=== PATIENT | female | born 1940 | race Caucasian/White ===

== ENCOUNTER 2016-10-27 18:45 | Emergency (ER) | payer MEDICARE, MEDICAID ==
[~2016-10-27] VITALS: Ht 157.5 cm; Wt 113.0 kg
[~2016-10-27 18:45] MED LIST: ADVAI100I PO; ALBU0.086 INH; ALBU1AER INH; ALBU6.7H INH; ATOR40TA PO; CARV6.252 PO; DOXY100T PO; LEVO100T4 PO; LOSA25TA31 PO; MONT4CHW2 PO; PRED20 PO; XYZA5TAB2 PO
[2016-10-27 18:57] VITALS: BP 117/69; PULSE 69; RESP 18; TEMP 98.8; O2SAT 100
[2016-10-27] MEDS ORDERED: SODIUM CHLORIDE 0.9% FLUSH 5 ML FLUSH IVF PRN (19:15)
--- NOTE | 2016-10-27 19:25 | PD ---
HPI . Swelling and shortness of breath Chief Complaint: Edema Time Seen by Provider: 19:12 Travel History International Travel<30 days: No Contact w/Intl Traveler<30days: No Traveled to known affect area: No History of Present Illness HPI Patient presents with peripheral edema including her arms and shortness of breath which started 3-4 days ago. She states that she does have a cough and some mild chest discomfort. She also states that she has some back pain. PFSH Past Medical History Asthma: Yes Cardiovascular Problems: Yes (CHF) High Cholesterol: Yes Diverticulitis: Yes GERD: Yes Hiatal Hernia: Yes Hypertension: Yes Respiratory: Yes (PE) Thyroid Disease: Yes Past Surgical History Abdominal Surgery: Yes Neurologic Surgery: Yes (lumbar sx) Other Surgery: Yes (partial thyroidectomy) Social History Alcohol Use: No Tobacco Use: No Substance Use: No Allergies-Medications (Allergen,Severity, Reaction): Coded Allergies: Penicillin (Verified Allergy, Unknown, 10/27/16) Reported Meds & Prescriptions Reported Meds & Active Scripts Active Review of Systems Except as stated in HPI: all other systems reviewed are Neg General / Constitutional: No: Fever, Chills Cardiovascular: Positive: Chest Pain or Discomfort Respiratory: Positive: Shortness of Breath Gastrointestinal: No: Nausea, Vomiting, Diarrhea Genitourinary: No: Urgency, Frequency, Dysuria Musculoskeletal: Positive: Edema Physical Exam Narrative GENERAL: Patient does not appear to be in any acute distress. She is obese. SKIN: Warm and dry. HEAD: Atraumatic. Normocephalic. EYES: Pupils equal and round. ENT: No nasal bleeding or discharge. Mucous membranes pink and moist. NECK: Trachea midline. Neck is supple. CARDIOVASCULAR: Regular rate and rhythm. Heart sounds are distant probably due to the size of her breasts. RESPIRATORY: No accessory muscle use. Her lungs sound clear. Breath sounds are distant also probably due to her size. GASTROINTESTINAL: Abdomen soft. Tender over an old surgical scar. Nondistended. MUSCULOSKELETAL: No obvious deformities. Her extremities appear swollen but there is no pitting. NEUROLOGICAL: Awake and alert. No obvious cranial nerve deficits. Motor grossly within normal limits. Normal speech. PSYCHIATRIC: Appropriate mood and affect; insight and judgment normal. Data Data Last Documented VS Vital Signs Date Time Temp Pulse Resp B/P Pulse Ox O2 Delivery O2 Flow Rate FiO2 10/27/16 19:37 66 20 144/62 97 10/27/16 18:57 98.8 Orders Complete Blood Count With Diff (10/27/16 19:12) Comprehensive Metabolic Panel (10/27/16 19:12) B-Type Natriuretic Peptide (10/27/16 19:12) Ckmb (Isoenzyme) Profile (10/27/16 19:12) Troponin I (10/27/16 19:12) Iv Access Insert/Monitor (10/27/16 19:12) Electrocardiogram (10/27/16 19:12) Ecg Monitoring (10/27/16 19:12) Oximetry (10/27/16 19:12) Oxygen Administration (10/27/16 19:12) Chest, Single Ap (10/27/16 19:12) Sodium Chloride 0.9% Flush (Ns Flush) (10/27/16 19:15) CKMB (10/27/16 20:20) CKMB% (10/27/16 20:20) Labs Laboratory Tests Test 10/27/16 10/27/16 20:20 20:45 Sodium Level 137 MEQ/L Potassium Level 4.7 MEQ/L Chloride Level 102 MEQ/L Carbon Dioxide Level 26.4 MEQ/L Anion Gap 9 MEQ/L Blood Urea Nitrogen 43 MG/DL Creatinine 1.70 MG/DL Estimat Glomerular Filtration 29 ML/MIN Rate Random Glucose 100 MG/DL Calcium Level 8.1 MG/DL Total Bilirubin 0.3 MG/DL Aspartate Amino Transf 15 U/L (AST/SGOT) Alanine Aminotransferase 17 U/L (ALT/SGPT) Alkaline Phosphatase 92 U/L Total Creatine Kinase 119 U/L Creatine Kinase MB LESS THAN 0.5 NG/ML Troponin I LESS THAN 0.02 NG/ML B-Type Natriuretic Peptide 85 PG/ML Total Protein 7.4 GM/DL Albumin 3.3 GM/DL White Blood Count 11.7 TH/MM3 Red Blood Count 3.81 MIL/MM3 Hemoglobin 11.1 GM/DL Hematocrit 34.8 % Mean Corpuscular Volume 91.4 FL Mean Corpuscular Hemoglobin 29.1 PG Mean Corpuscular Hemoglobin 31.9 % Concent Red Cell Distribution Width 13.7 % Platelet Count 165 TH/MM3 Mean Platelet Volume 7.8 FL Neutrophils (%) (Auto) % Lymphocytes (%) (Auto) % Monocytes (%) (Auto) % Eosinophils (%) (Auto) % Basophils (%) (Auto) % Neutrophils # (Auto) TH/MM3 Lymphocytes # (Auto) TH/MM3 Monocytes # (Auto) TH/MM3 Eosinophils # (Auto) TH/MM3 Basophils # (Auto) TH/MM3 CBC Comment AUTO DIFF MDM Medical Decision Making Medical Screen Exam Complete: Yes Emergency Medical Condition: Yes Medical Record Reviewed: Yes (she has a history of asthma and bronchitis.) Interpretation(s) EKG shows a normal sinus rhythm with no ST segment elevation or depression. Differential Diagnosis Differential diagnosis of dyspnea includes but is not limited to congestive heart failure, pneumonia, wheezing, pneumothorax, pulmonary embolism Narrative Course Patient presents complaining of shortness of breath and diffuse swelling. Her swelling does not appear typical of CHF. Diagnosis Primary Impression: Dyspnea Qualified Code: R06.00 - Dyspnea, unspecified type Additional Impression: Swelling Additional Instructions: Follow up with your doctor Disposition: 01 DISCHARGE HOME Condition: Stable Lisa Orellana MD Oct 27, 2016 19:25
[2016-10-27 19:37] VITALS: BP 144/62; PULSE 66; RESP 20; O2SAT 97
--- NOTE | 2016-10-27 20:05 | RADHPO ---
EXAM DATE/TIME: 10/27/2016 19:58 [facility] COMPARISON: CHEST SINGLE AP, June 12, 2016, 20:21. INDICATIONS : Short of breath. MEDICAL HISTORY : None. SURGICAL HISTORY : None. ENCOUNTER: Initial ACUITY: 2 days PAIN SCORE: 6/10 LOCATION: Bilateral chest FINDINGS: A single view of the chest demonstrates the lungs to be symmetrically aerated without evidence of mas s, infiltrate or effusion. Cardiomegaly. The cardiomediastinal contours are unremarkable. Osseous s tructures are intact. CONCLUSION: No acute disease. Luis Esposito MD on October 27, 2016 at 20:03 Board Certified Radiologist. This report was verified electronically.
[2016-10-27 20:41] LABS: CHLORIDE 102 MEQ/L (98-107); POTASSIUM 4.7 MEQ/L (3.5-5.1); SODIUM (NA) 137 MEQ/L (136-145)
[2016-10-27 20:44] LABS: ANION GAP 9 MEQ/L (5-15); BICARBONATE 26.4 MEQ/L (21.0-32.0); BLOOD UREA NITROGEN 43 MG/DL (7-18)
[2016-10-27 20:47] LABS: ALT (GPT) 17 U/L (10-53); AST (GOT) 15 U/L (15-37)
[2016-10-27 20:48] LABS: GLOMERULAR FILTRATION RATE 29 ML/MIN (>89)
[2016-10-27 20:49] LABS: TOTAL BILIRUBIN ADULT 0.3 MG/DL (0.2-1.0)
[2016-10-27 20:50] LABS: ALKALINE PHOSPHATASE 92 U/L (45-117); CREATINE KINASE 119 U/L (26-192)
[2016-10-27 20:59] LABS: HEMATOCRIT 34.8 % (35.0-46.0); MEAN CELL VOLUME 91.4 FL (80.0-100.0); MEAN CORPUSCULAR HEMOGLOBIN 29.1 PG (27.0-34.0); MEAN CORPUSCULAR HGB CONC 31.9 % (32.0-36.0); PLATELET COUNT 165 TH/MM3 (150-450); RED BLOOD COUNT 3.81 MIL/MM3 (4.00-5.30); RED CELL DISTRIBUTION WIDTH 13.7 % (11.6-17.2); WHITE BLOOD COUNT 11.7 TH/MM3 (4.0-11.0)
[2016-10-27 21:03] LABS: CKMB LESS THAN 0.5 NG/ML (0.5-3.6)
[2016-10-27 21:28] LABS: HEMO FLAGS AUTO DIFF
[2016-10-27 21:44] LABS: EOSINOPHILS 3 % (0-4); NEUTROPHIL # MANUAL DIFF 8.2 TH/MM3 (1.8-7.7); POLYS (SEG NEUTROPHILS) 70 % (16-70); WBC DIFF SAMPLE 100
[2016-10-27 21:45] LABS: PLATELET ESTIMATE SMEAR NORMAL (NORMAL); PLATELET MORPHOLOGY NORMAL (NORMAL); SCAN/DIFF FINAL DIFF MANUAL
[2016-10-27] MEDS ORDERED: XYZA5TAB2 PO (22:18)
[2016-10-27] MEDS ORDERED: CARV6.252 PO (22:18)
[2016-10-27] MEDS ORDERED: ADVA100A INH (22:18)
[2016-10-27] MEDS ORDERED: LEVO100T5 PO (22:18)
[2016-10-27] MEDS ORDERED: COZA25TA PO (22:18)
[2016-10-27] MEDS ORDERED: MONT10TA2 PO (22:18)
[2016-10-27] MEDS ORDERED: ATOR40TA16 PO (22:19)
[2016-10-27] MEDS ORDERED: ALBU6.7H INH (22:19)
[2016-10-27 22:26] VITALS: BP 132/74
--- NOTE | 2016-10-28 12:39 | EKG ---
Date Performed: 10/27/2016 Time Performed: 19:29:58 PTAGE: 75 years EKG: Sinus rhythm . Short HI interval Borderline ECG Compared to prior tracing no significant change PREVIOUS TRACING : 06/12/2016 20.17 DOCTOR: Roger Posadas Interpretating Date/Time 10/28/2016 12:35:44
== END 2016-10-27 22:27 | disposition home or self-care (01) ==
LOC: PHED 18:45
DX: R06.02 Shortness of breath (principal); R07.89 Other chest pain; R05 Cough
CPT/HCPCS: 71010; 80053; 82550; 82552; 83880; 84484; 85007; 85027; 93005

== ENCOUNTER 2016-10-31 19:07 | Emergency (ER) | payer MEDICARE, MEDICAID ==
[~2016-10-31] VITALS: Ht 157.5 cm; Wt 110.0 kg
[~2016-10-31 19:07] MED LIST changes: +ADVA100A INH; -ADVAI100I PO; -ALBU0.086 INH; -ALBU1AER INH; -ATOR40TA PO; +ATOR40TA16 PO; +COZA25TA PO; -DOXY100T PO; -LEVO100T4 PO; +LEVO100T5 PO; -LOSA25TA31 PO; +MONT10TA2 PO; -MONT4CHW2 PO; -PRED20 PO
[2016-10-31 19:09] VITALS: BP 157/70; PULSE 65; RESP 18; TEMP 98.2; O2SAT 97
[2016-11-01] VITALS: BP 134/80; PULSE 75; RESP 20; O2SAT 97
[2016-11-01] MEDS ORDERED: SODIUM CHLORIDE 0.9% FLUSH 5 ML FLUSH IVF PRN (00:30)
[2016-11-01] MEDS ORDERED: methylPREDNISolone SOD SUCC 125 MG/2 ML VIAL IVP ONE (00:30)
[2016-11-01] MEDS: RESP: ALBUTEROL 2.5 MG/IPRATROPIUM 0.5 MG NEB (SCH) INH (00:39)
[2016-11-01 01:08] VITALS: O2SAT 97
[2016-11-01 01:21] LABS: AUTOMATED NEUTROPHIL # 3.2 TH/MM3 (1.8-7.7); BASOPHIL % 0.3 % (0.0-2.0); EOSINOPHIL # 0.2 TH/MM3 (0-0.4); EOSINOPHIL % 3.6 % (0.0-4.0); HEMATOCRIT 35.3 % (35.0-46.0); HEMO FLAGS DIFF FINAL; LYMPH % 29.1 % (9.0-44.0); LYMPHOCYTE # 1.9 TH/MM3 (1.0-4.8); MEAN CELL VOLUME 90.4 FL (80.0-100.0); MEAN CORPUSCULAR HEMOGLOBIN 30.9 PG (27.0-34.0); MEAN CORPUSCULAR HGB CONC 34.2 % (32.0-36.0); MONO % 17.2 % (0.0-8.0); NEUT % 49.8 % (16.0-70.0); PLATELET COUNT 153 TH/MM3 (150-450); RED BLOOD COUNT 3.91 MIL/MM3 (4.00-5.30); RED CELL DISTRIBUTION WIDTH 14.1 % (11.6-17.2); WHITE BLOOD COUNT 6.4 TH/MM3 (4.0-11.0)
--- NOTE | 2016-11-01 01:38 | RADRPT ---
EXAM DATE/TIME: 11/01/2016 01:13 [facility] COMPARISON: CHEST SINGLE AP, October 27, 2016, 19:58. INDICATIONS : Shortness of breath. MEDICAL HISTORY : Hypertension. Asthma. SURGICAL HISTORY : None. ENCOUNTER: Initial ACUITY: 1 day PAIN SCORE: 0/10 LOCATION: Bilateral chest FINDINGS: PA and lateral views of the chest demonstrate the lungs to be symmetrically aerated without evidence of mass, infiltrate or effusion. The cardiomediastinal contours are unremarkable. There is mild kyph otic accentuation related to mild wedge compression deformities of undetermined age.. CONCLUSION: No acute disease Santhosh Anton MD on November 01, 2016 at 1:35 Board Certified Radiologist. This report was verified electronically.
[2016-11-01 01:39] LABS: APTT (PATIENT) 26.1 SEC (24.3-30.1); PROTHROMBIN TIME - PATIENT 10.6 SEC (9.8-11.6)
[2016-11-01 02:21] LABS: ALT (GPT) 16 U/L (10-53); ANION GAP 10 MEQ/L (5-15); AST (GOT) 24 U/L (15-37); BICARBONATE 25.9 MEQ/L (21.0-32.0); BLOOD UREA NITROGEN 24 MG/DL (7-18); CHLORIDE 97 MEQ/L (98-107); GLOMERULAR FILTRATION RATE 41 ML/MIN (>89); SODIUM (NA) 133 MEQ/L (136-145)
[2016-11-01 02:24] LABS: ALKALINE PHOSPHATASE 78 U/L (45-117); TOTAL BILIRUBIN ADULT 0.5 MG/DL (0.2-1.0)
[2016-11-01] MEDS ORDERED: RESP: ALBUTEROL 2.5 MG/3 ML NEB (SCH) NEB ONE (02:30)
--- NOTE | 2016-11-01 03:58 | PD ---
HPI Chief Complaint: Respiratory Symptoms Time Seen by Provider: 00:02 Travel History International Travel<30 days: No Contact w/Intl Traveler<30days: No Traveled to known affect area: No History of Present Illness HPI Patient is a 75-year-old female comes in complaining of shortness of breath and leg swelling. She says this has been going on since Friday. She went to the [facility] and was discharged home. She says that her breathing has not improved. She says she is unable to lay flat at night due to shortness of breath. She reports coughing. She denies any fever or chills. She denies any chest pain. She does have a history of COPD, and has been using her albuterol. PFSH Past Medical History Asthma: Yes Cardiovascular Problems: Yes (CHF) High Cholesterol: Yes Diverticulitis: Yes GERD: Yes Hiatal Hernia: Yes Hypertension: Yes Respiratory: Yes (ASTHMA/BRONCHITIS/COPD) Thyroid Disease: Yes Tetanus Vaccination: Unknown Influenza Vaccination: Yes : 7 Para: 6 Miscarriage: 1 Past Surgical History Abdominal Surgery: Yes Neurologic Surgery: Yes (LUMBAR SURGERY) Other Surgery: Yes (THYROIDECTOMY-PARTIAL) Social History Alcohol Use: No Tobacco Use: No Substance Use: No Allergies-Medications (Allergen,Severity, Reaction): Coded Allergies: Penicillin (Verified Allergy, Unknown, 11/01/16) Reported Meds & Prescriptions Reported Meds & Active Scripts Active Levaquin (Levofloxacin) 750 Mg Tab 750 Mg PO DAILY 7 Days Prednisone 50 Mg Tab 50 Mg PO DAILY 4 Days Reported Proventil Hfa 6.7 GM Inh (Albuterol Sulfate) 90 Mcg/Act Aer 1 Puff INH Q4H PRN Atorvastatin (Atorvastatin Calcium) 40 Mg Tab 40 Mg PO HS Xyzal (Levocetirizine) 5 Mg Tab 5 Mg PO DAILY Carvedilol 6.25 Mg Tab 6.25 Mg PO DAILY Advair Diskus Inh (Fluticasone-Salmeterol Inh) 100-50 Mcg/Blist Aer 1 Puff INH BID Rinse mouth after use. Levothyroxine (Levothyroxine Sodium) 100 Mcg Tab 100 Mcg PO DAILY Cozaar (Losartan Potassium) 25 Mg Tab 12.5 Mg PO DAILY Singulair (Montelukast Sodium) 10 Mg Tab 10 Mg PO HS Review of Systems Except as stated in HPI: all other systems reviewed are Neg General / Constitutional: No: Fever, Chills HENT: No: Headaches, Lightheadedness Cardiovascular: No: Chest Pain or Discomfort Respiratory: Positive: Cough, Shortness of Breath Gastrointestinal: No: Nausea, Vomiting Musculoskeletal: Positive: Edema, No: Pain Skin: No Change in Pigmentation Neurologic: No: Weakness, Dizziness Physical Exam Narrative GENERAL: Awake and alert, in no acute distress. SKIN: Warm and dry. HEAD: Atraumatic. Normocephalic. EYES: Pupils equal and round. No scleral icterus. ENT: Mucous membranes pink and moist. NECK: Trachea midline. No JVD. CARDIOVASCULAR: Regular rate and rhythm. No murmur appreciated. RESPIRATORY: No accessory muscle use. Bilateral coarse breath sounds and wheezing throughout the lungs. Breath sounds equal bilaterally. GASTROINTESTINAL: Abdomen soft, non-tender, nondistended. MUSCULOSKELETAL: No obvious deformities. No clubbing. No cyanosis. 1+ edema bilateral lower extremities. No calf tenderness to palpation. NEUROLOGICAL: Awake and alert. No obvious cranial nerve deficits. Motor grossly within normal limits. Normal speech. PSYCHIATRIC: Appropriate mood and affect; insight and judgment normal. Data Data Last Documented VS Vital Signs Date Time Temp Pulse Resp B/P Pulse Ox O2 Delivery O2 Flow Rate FiO2 11/01/16 04:25 68 16 142/69 97 11/01/16 01:08 Room Air 10/31/16 19:09 98.2 Orders Complete Blood Count With Diff (11/01/16 00:18) Comprehensive Metabolic Panel (11/01/16 00:18) B-Type Natriuretic Peptide (11/01/16 00:18) Act Partial Throm Time (Ptt) (11/01/16 00:18) Prothrombin Time / Inr (Pt) (11/01/16 00:18) Troponin I (11/01/16 00:18) Iv Access Insert/Monitor (11/01/16 00:18) Electrocardiogram (11/01/16 00:18) Ecg Monitoring (11/01/16:18) Oximetry (11/01/16:18) Oxygen Administration (11/01/16 00:18) Chest, Pa & Lat (11/01/16 00:18) Sodium Chloride 0.9% Flush (Ns Flush) (11/01/16 00:30) Methylprednisolone So Succ Inj (Solumedr (11/01/16 00:30) Albuterol-Ipratropium Neb (Duoneb Neb) (11/01/16 00:30) Albuterol Neb (Albuterol Neb) (11/01/16 02:30) Labs Laboratory Tests Test 11/01/16 11/01/16 00:40 01:30 White Blood Count 6.4 TH/MM3 Red Blood Count 3.91 MIL/MM3 Hemoglobin 12.1 GM/DL Hematocrit 35.3 % Mean Corpuscular Volume 90.4 FL Mean Corpuscular Hemoglobin 30.9 PG Mean Corpuscular Hemoglobin 34.2 % Concent Red Cell Distribution Width 14.1 % Platelet Count 153 TH/MM3 Mean Platelet Volume 8.4 FL Neutrophils (%) (Auto) 49.8 % Lymphocytes (%) (Auto) 29.1 % Monocytes (%) (Auto) 17.2 % Eosinophils (%) (Auto) 3.6 % Basophils (%) (Auto) 0.3 % Neutrophils # (Auto) 3.2 TH/MM3 Lymphocytes # (Auto) 1.9 TH/MM3 Monocytes # (Auto) 1.1 TH/MM3 Eosinophils # (Auto) 0.2 TH/MM3 Basophils # (Auto) 0.0 TH/MM3 CBC Comment DIFF FINAL Differential Comment Prothrombin Time 10.6 SEC Prothromb Time International 1.0 RATIO Ratio Activated Partial 26.1 SEC Thromboplast Time B-Type Natriuretic Peptide 78 PG/ML Sodium Level 133 MEQ/L Potassium Level 4.0 MEQ/L Chloride Level 97 MEQ/L Carbon Dioxide Level 25.9 MEQ/L Anion Gap 10 MEQ/L Blood Urea Nitrogen 24 MG/DL Creatinine 1.29 MG/DL Estimat Glomerular Filtration 41 ML/MIN Rate Random Glucose 111 MG/DL Calcium Level 8.3 MG/DL Total Bilirubin 0.5 MG/DL Aspartate Amino Transf 24 U/L (AST/SGOT) Alanine Aminotransferase 16 U/L (ALT/SGPT) Alkaline Phosphatase 78 U/L Troponin I LESS THAN 0.02 NG/ML Total Protein 7.3 GM/DL Albumin 3.2 GM/DL [facility] Medical Decision Making Medical Screen Exam Complete: Yes Emergency Medical Condition: Yes Medical Record Reviewed: Yes Interpretation(s) ECG shows normal sinus rhythm at 60, no ST elevation or depression, normal intervals. Differential Diagnosis Pneumonia vs COPD exacerbation vs CHF Narrative Course Patient is a 74-year-old female comes in complaining of shortness of breath. Exam shows wheezing throughout both lungs. IV established, labs sent. Patient given 3 duo nebs as well as a dose of Solu-Medrol. Labs show no acute abnormalities. X-ray shows no acute abnormalities. Last 24 hours Impressions Chest X-Ray 11/01/16 0018 Signed Impressions: Service Date/Time: Tuesday, November 01, 2016 01:13 - CONCLUSION: No acute disease Santhosh Anton MD Patient reports feeling much better after treatments. She still has some wheezing in her lungs. Given additional dose of albuterol. Patient reports feeling better, she would like to go home. She still is some occasional wheezes. Patient states she would like to try going home and will return if she is feeling worse. Advised follow-up with her primary doctor. Advised to return immediately for any worsening symptoms. Discharged home with prescription for prednisone as well as Levaquin. Diagnosis Primary Impression: Acute asthma exacerbation Qualified Code: J45.21 - Mild intermittent asthma with acute exacerbation Patient Instructions: Asthma (ED), General Instructions Additional Instructions: Follow up with your primary doctor. Return immediately for any worsening symptoms. Take all of your antibiotic. Use your albuterol every 4 hours for SOB. Scripts Levofloxacin (Levaquin)750 Mg Wnt420 Mg PO DAILY 7 Days Ref 0 Prov:Darcie Ding MD 11/01/16 Prednisone 50 Mg Tab50 Mg PO DAILY 4 Days Ref 0 Prov:Darcie Ding MD 11/01/16 Disposition: DISCHARGE HOME Condition: Stable Darcie Ding MD Nov 01, 2016 03:58
[2016-11-01] MEDS ORDERED: LEVA750T PO (04:01)
[2016-11-01] MEDS ORDERED: PRED50 PO (04:01)
[2016-11-01 04:25] VITALS: BP 142/69
--- NOTE | 2016-11-01 23:10 | EKG ---
Date Performed: 11/01/2016 Time Performed: 01:45:17 PTAGE: 75 years EKG: Sinus rhythm NORMAL ECG PREVIOUS TRACING : 10/27/2016 19.29 DOCTOR: Nathan Spangler Interpretating Date/Time 11/01/2016 23:08:40
== END 2016-11-01 04:35 | disposition home or self-care (01) ==
LOC: NEPE 19:07
DX: J45.21 Mild intermittent asthma with (acute) exacerbation (principal); J44.9 Chronic obstructive pulmonary disease, unspecified; I10 Essential (primary) hypertension; I50.9 Heart failure, unspecified
CPT/HCPCS: 71020; 80053; 83880; 84484; 85025; 85610; 85730; 93005; 94640; 94664; 96374; 99284; J2930; J7613

== ENCOUNTER 2017-04-16 18:52 | Emergency (ER) | payer MEDICARE, MEDICAID ==
[2017-04-16] VITALS (7 sets, daily range): BP systolic 163–216; BP diastolic 67–90; PULSE 54–72; RESP 16–18; TEMP 98.7; O2SAT 98–99
[~2017-04-16] VITALS: Ht 157.5 cm; Wt 105.0 kg
[~2017-04-16 18:52] MED LIST changes: +LEVA750T PO; +PRED50 PO
[2017-04-16] MEDS ORDERED: NITROGLYCERIN 0.4 MG SL 25 TABS/BTL SL ONE (20:00)
--- NOTE | 2017-04-16 20:06 | PD ---
HPI Chief Complaint: Edema Time Seen by Provider: 19:25 Travel History International Travel<30 days: No Contact w/Intl Traveler<30days: No Traveled to known affect area: No History of Present Illness HPI 76yo F with PMH of CHF, asthma, arthritis presents to the ED with c/o bilateral leg swelling for 3 days. States swelling is worst when she stands up. Pt was on lasix 1 year ago but was taken off of it because her leg swelling had gotten better. Pt was seen here in 10/2016 and had bilateral leg swelling then too. During review of systems, pt also felt a little sob currently. Denies any fever , chest pain, cough, n/v, abdominal pain, focal weakness or numbness. PFSH Past Medical History Asthma: Yes Cardiovascular Problems: Yes (CHF) High Cholesterol: Yes Diverticulitis: Yes GERD: Yes Hiatal Hernia: Yes Hypertension: Yes Respiratory: Yes Thyroid Disease: Yes ?: Not : 7 Para: 6 Miscarriage: 1 Past Surgical History Abdominal Surgery: Yes Neurologic Surgery: Yes (LUMBAR SURGERY) Other Surgery: Yes (THYROIDECTOMY-PARTIAL) Social History Alcohol Use: No Tobacco Use: No Substance Use: No Allergies-Medications (Allergen,Severity, Reaction): Coded Allergies: penicillin G (Unverified Allergy, Unknown, 04/16/17) Reported Meds & Prescriptions Reported Meds & Active Scripts Active Levaquin (Levofloxacin) 750 Mg Tab 750 Mg PO DAILY 7 Days Prednisone 50 Mg Tab 50 Mg PO DAILY 4 Days Reported Proventil Hfa 6.7 GM Inh (Albuterol Sulfate) 90 Mcg/Act Aer 1 Puff INH Q4H PRN Atorvastatin (Atorvastatin Calcium) 40 Mg Tab 40 Mg PO HS Xyzal (Levocetirizine) 5 Mg Tab 5 Mg PO DAILY Advair Diskus Inh (Fluticasone-Salmeterol Inh) 100-50 Mcg/Blist Aer 1 Puff INH BID Rinse mouth after use. Levothyroxine (Levothyroxine Sodium) 100 Mcg Tab 100 Mcg PO DAILY Cozaar (Losartan Potassium) 25 Mg Tab 12.5 Mg PO DAILY Singulair (Montelukast Sodium) 10 Mg Tab 10 Mg PO HS Review of Systems Except as stated in HPI: all other systems reviewed are Neg Physical Exam Narrative GENERAL: 76yo F not in distress. SKIN: Focused skin assessment warm/dry. HEAD: Atraumatic. Normocephalic. EYES: Pupils equal and round. No scleral icterus. No injection or drainage. ENT: No nasal bleeding or discharge. Mucous membranes pink and moist. NECK: Trachea midline. No JVD. CARDIOVASCULAR: Regular rate and rhythm. No murmur appreciated. RESPIRATORY: No accessory muscle use. Clear to auscultation. Breath sounds equal bilaterally. Saturating at 100% on RA. GASTROINTESTINAL: Abdomen soft, non-tender, nondistended. Hepatic and splenic margins not palpable. MUSCULOSKELETAL: No obvious deformities. No clubbing. No cyanosis. Trace bilateral lower ext edema. No erythema. NEUROLOGICAL: Awake and alert. No obvious cranial nerve deficits. Motor grossly within normal limits. Normal speech. PSYCHIATRIC: Appropriate mood and affect; insight and judgment normal. Data Data Last Documented VS Vital Signs Date Time Temp Pulse Resp B/P Pulse Ox O2 Delivery O2 Flow Rate FiO2 04/16/17 19:55 18 99 Room Air 04/16/17 18:57 98.7 58 205/88 Orders Complete Blood Count With Diff (04/16/17 19:59) Basic Metabolic Panel (Bmp) (04/16/17 19:59) B-Type Natriuretic Peptide (04/16/17 19:59) Troponin I (04/16/17 19:59) Iv Access Insert/Monitor (04/16/17 19:59) Ecg Monitoring (04/16/17 19:59) Oximetry (04/16/17 19:59) Chest, Single Ap (04/16/17 19:59) Sodium Chloride 0.9% Flush (Ns Flush) (04/16/17 20:00) Nitroglycerin Sl (Nitrostat Sl) (04/16/17 20:00) Electrocardiogram (04/16/17 ) Furosemide Inj (Lasix Inj) (04/16/17 21:30) Labs Laboratory Tests Test 04/16/17 20:50 White Blood Count 8.7 TH/MM3 Red Blood Count 3.73 MIL/MM3 Hemoglobin 11.4 GM/DL Hematocrit 33.6 % Mean Corpuscular Volume 89.9 FL Mean Corpuscular Hemoglobin 30.6 PG Mean Corpuscular Hemoglobin 34.0 % Concent Red Cell Distribution Width 13.5 % Platelet Count 192 TH/MM3 Mean Platelet Volume 7.1 FL Neutrophils (%) (Auto) 62.6 % Lymphocytes (%) (Auto) 26.4 % Monocytes (%) (Auto) 8.0 % Eosinophils (%) (Auto) 2.2 % Basophils (%) (Auto) 0.8 % Neutrophils # (Auto) 5.4 TH/MM3 Lymphocytes # (Auto) 2.3 TH/MM3 Monocytes # (Auto) 0.7 TH/MM3 Eosinophils # (Auto) 0.2 TH/MM3 Basophils # (Auto) 0.1 TH/MM3 CBC Comment DIFF FINAL Differential Comment Sodium Level 135 MEQ/L Potassium Level 4.7 MEQ/L Chloride Level 102 MEQ/L Carbon Dioxide Level 26.8 MEQ/L Anion Gap 6 MEQ/L Blood Urea Nitrogen 11 MG/DL Creatinine 1.10 MG/DL Estimat Glomerular Filtration 49 ML/MIN Rate Random Glucose 90 MG/DL Calcium Level 8.8 MG/DL Troponin I LESS THAN 0.02 NG/ML B-Type Natriuretic Peptide 182 PG/ML MDM Medical Decision Making Medical Screen Exam Complete: Yes Emergency Medical Condition: Yes Interpretation(s) EKG: Sinus bradycardia at 58bpm. Normal axis. No ST segment elevation or depression. Differential Diagnosis CHF exacerbation vs. dependent edema vs. venous stasis Narrative Course 76yo F with CHF here with c/o worsening lower extremity edema. It appears to be chronic and pt was on lasix before. On review of system, pt states she does feel a little sob. Pt is speaking in complete sentences and has clear lungs to auscultation on exam. Pt also saturating at 100% on RA and does not appear to be in distress. Labs reviewed, no leukocytosis. Troponin negative. Creatinine is 1.10. K is normal at 4.7. BNP is mildly elevated at 182. Will give lasix 40mg IV. CXR showed no acute disease. Pt reevaluated at bedside and states she feels better and no longer sob. Return precautions given. Diagnosis Primary Impression: Swelling of lower extremity Patient Instructions: General Instructions Departure Forms: Tests/Procedures Additional Instructions: Please follow up with your primary care physician in 1-2 days. Return to the ED if symptoms worsen. Med/Other Pt SpecificInfo: No Change to Meds Disposition: 01 DISCHARGE HOME Condition: Stable Aurora Almanza Apr 16, 2017 20:06
[2017-04-16] MEDS: SODIUM CHLORIDE 0.9% FLUSH 10 ML FLUSH IVF PRN ×2 (20:14→21:37)
--- NOTE | 2017-04-16 20:24 | RADRPT ---
EXAM DATE/TIME: 04/16/2017 20:07 [facility] COMPARISON: CHEST SINGLE AP, October 27, 2016, 19:58. INDICATIONS : Shortness of breath and bilateral lower extremity swelling. MEDICAL HISTORY : Hypertension. Asthma. SURGICAL HISTORY : None. ENCOUNTER: Initial ACUITY: 1 day PAIN SCORE: 0/10 LOCATION: Bilateral chest FINDINGS: A single view of the chest demonstrates the lungs to be symmetrically aerated without evidence of mas s, infiltrate or effusion. The cardiomediastinal contours are unremarkable. Osseous structures are intact. CONCLUSION: No acute disease. Santhosh Riley MD on April 16, 2017 at 20:22 Board Certified Radiologist. This report was verified electronically.
[2017-04-16 21:02] LABS: AUTOMATED NEUTROPHIL # 5.4 TH/MM3 (1.8-7.7); BASOPHIL # 0.1 TH/MM3 (0-0.2); BASOPHIL % 0.8 % (0.0-2.0); EOSINOPHIL # 0.2 TH/MM3 (0-0.4); EOSINOPHIL % 2.2 % (0.0-4.0); HEMATOCRIT 33.6 % (35.0-46.0); HEMO FLAGS DIFF FINAL; LYMPH % 26.4 % (9.0-44.0); LYMPHOCYTE # 2.3 TH/MM3 (1.0-4.8); MEAN CELL VOLUME 89.9 FL (80.0-100.0); MEAN CORPUSCULAR HEMOGLOBIN 30.6 PG (27.0-34.0); NEUT % 62.6 % (16.0-70.0); PLATELET COUNT 192 TH/MM3 (150-450); RED BLOOD COUNT 3.73 MIL/MM3 (4.00-5.30); RED CELL DISTRIBUTION WIDTH 13.5 % (11.6-17.2); WHITE BLOOD COUNT 8.7 TH/MM3 (4.0-11.0)
[2017-04-16 21:11] LABS: CHLORIDE 102 MEQ/L (98-107); POTASSIUM 4.7 MEQ/L (3.5-5.1); SODIUM (NA) 135 MEQ/L (136-145)
[2017-04-16 21:13] LABS: ANION GAP 6 MEQ/L (5-15); BICARBONATE 26.8 MEQ/L (21.0-32.0)
[2017-04-16 21:14] LABS: BLOOD UREA NITROGEN 11 MG/DL (7-18)
[2017-04-16 21:17] LABS: GLOMERULAR FILTRATION RATE 49 ML/MIN (>89)
[2017-04-16] MEDS ORDERED: FUROSEMIDE 40 MG/4 ML VIAL IV PUSH ONE (21:30)
--- NOTE | 2017-04-17 09:07 | EKG ---
Date Performed: 04/16/2017 Time Performed: 20:57:48 PTAGE: 76 years EKG: SINUS BRADYCARDIA BORDERLINE ECG PREVIOUS TRACING : 11/01/2016 01.45 Compared to prior tracing no significant change DOCTOR: Gilles Chong Interpretating Date/Time 04/17/2017 09:00:35
== END 2017-04-16 22:30 | disposition home or self-care (01) ==
LOC: PHED 18:52
DX: R60.0 Localized edema (principal); R06.02 Shortness of breath; R94.31 Abnormal electrocardiogram [ECG] [EKG]; I10 Essential (primary) hypertension; E07.9 Disorder of thyroid, unspecified; E78.00 Pure hypercholesterolemia, unspecified; Z87.09 Personal history of other diseases of the respiratory system; Z86.79 Personal history of other diseases of the circulatory system; Z87.19 Personal history of other diseases of the digestive system; Z87.39 Personal history of other diseases of the musculoskeletal system and connective tissue
CPT/HCPCS: 71010; 80048; 83880; 84484; 85025; 93005; 96374; 99285; J1940

== ENCOUNTER 2017-07-04 17:35 | Emergency (ER) | payer MEDICARE, MEDICAID ==
[~2017-07-04] VITALS: Ht 157.5 cm; Wt 104.5 kg
[~2017-07-04 17:35] MED LIST changes: -CARV6.252 PO
[2017-07-04 17:44] VITALS: BP 212/83; PULSE 76; RESP 15; TEMP 98.2; O2SAT 98
[2017-07-04 18:07] VITALS: RESP 16; O2SAT 100
[2017-07-04 18:09] VITALS: BP 139/71; PULSE 68; RESP 16; TEMP 97.8; O2SAT 100
[2017-07-04 18:17] LABS: AUTOMATED NEUTROPHIL # 6.8 TH/MM3 (1.8-7.7); BASOPHIL # 0.1 TH/MM3 (0-0.2); BASOPHIL % 0.6 % (0.0-2.0); EOSINOPHIL # 0.2 TH/MM3 (0-0.4); EOSINOPHIL % 1.5 % (0.0-4.0); HEMATOCRIT 37.2 % (35.0-46.0); HEMO FLAGS DIFF FINAL; LYMPH % 23.4 % (9.0-44.0); LYMPHOCYTE # 2.4 TH/MM3 (1.0-4.8); MEAN CELL VOLUME 92.8 FL (80.0-100.0); MEAN CORPUSCULAR HEMOGLOBIN 30.9 PG (27.0-34.0); MEAN CORPUSCULAR HGB CONC 33.3 % (32.0-36.0); MONO % 8.4 % (0.0-8.0); NEUT % 66.1 % (16.0-70.0); PLATELET COUNT 190 TH/MM3 (150-450); RED BLOOD COUNT 4.01 MIL/MM3 (4.00-5.30); RED CELL DISTRIBUTION WIDTH 14.1 % (11.6-17.2); WHITE BLOOD COUNT 10.2 TH/MM3 (4.0-11.0)
[2017-07-04 18:28] LABS: PROTHROMBIN TIME - PATIENT 10.6 SEC (9.8-11.6)
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
[2017-07-04 18:37] LABS: ANION GAP 8 MEQ/L (5-15); BICARBONATE 28.2 MEQ/L (21.0-32.0); BLOOD UREA NITROGEN 16 MG/DL (7-18); CHLORIDE 99 MEQ/L (98-107); GLOMERULAR FILTRATION RATE 52 ML/MIN (>89); POTASSIUM 4.1 MEQ/L (3.5-5.1); SODIUM (NA) 135 MEQ/L (136-145)
[2017-07-04 18:41] LABS: CREATINE KINASE 135 U/L (26-192)
[2017-07-04 18:53] LABS: CKMB 0.8 NG/ML (0.5-3.6)
[2017-07-04 19:23] VITALS: BP 146/65; PULSE 60; RESP 18; O2SAT 99
--- NOTE | 2017-07-04 19:35 | RADRPT ---
EXAM DATE/TIME: 07/04/2017 19:12 [facility] COMPARISON: No previous studies available for comparison. INDICATIONS : Headaches for one day. RADIATION DOSE: 56.77 CTDIvol (mGy) MEDICAL HISTORY : Congestive hearrt failure. Hypertension. Cardiac. SURGICAL HISTORY : Thyroidectomy. ENCOUNTER: Initial ACUITY: 1 day PAIN SCALE: 7/10 LOCATION: Bilateral cranial TECHNIQUE: Multiple contiguous axial images were obtained of the head. Using automated exposure control and adj ustment of the mA and/or kV according to patient size, radiation dose was kept as low as reasonably a chievable to obtain optimal diagnostic quality images. DICOM format image data is available electro nically for review and comparison. FINDINGS: CEREBRUM: The ventricles are normal for age. No evidence of midline shift, mass lesion, hemorrhage or acute in farction. No extra-axial fluid collections are seen. POSTERIOR FOSSA: The cerebellum and brainstem are intact. The 4th ventricle is midline. The cerebellopontine angle i s unremarkable. EXTRACRANIAL: The visualized portion of the orbits is intact. SKULL: The calvaria is intact. No evidence of skull fracture. CONCLUSION: Normal examination. Jun Warren MD on July 04, 2017 at 19:33 Board Certified Radiologist. This report was verified electronically.
[2017-07-04] MEDS ORDERED: ACETAMINOPHEN 325 MG TAB PO ONE (20:15)
--- NOTE | 2017-07-06 15:51 | EKG ---
Date Performed: 07/04/2017 Time Performed: 18:08:54 PTAGE: 76 years EKG: Sinus rhythm WITH OCCASIONAL SUPRAVENTRICULAR PREMATURE COMPLEXES BORDERLINE ECG PREVIOUS TRACING : 04/16/2017 20.57 Compared to previous tracing, premature supraventricular co mplexes are now present. DOCTOR: Geo Norris Interpretating Date/Time 07/06/2017 15:50:27
== END 2017-07-04 21:15 | disposition home or self-care (01) ==
LOC: NEPC 17:35
DX: I10 Essential (primary) hypertension (principal); I50.9 Heart failure, unspecified; J45.909 Unspecified asthma, uncomplicated; K21.9 Gastro-esophageal reflux disease without esophagitis; E07.9 Disorder of thyroid, unspecified
CPT/HCPCS: 70450; 80048; 82550; 82552; 84484; 85025; 85610; 85730; 93005; 99284